=== PATIENT | female | born 1965 | race Caucasian/White ===

== ENCOUNTER 2016-03-17 13:51 | Day surgery (SDC) | payer MEDICARE ==
--- NOTE | ~2016-03-17 | OP ---
Record Of Operation [facility] [address] [place]. [address] NAME: TITI SERNA : 67 STATUS : [facility]#: [id number] AGE: 51 ADM/REG DATE : 03/17/16 MR#: [id number] REPORT SERV DATE: 03/17/16 DICTATED BY: Dinorah NGUYEN DATE: 03/17/16 REPORT STATUS : Draft TRANSCRIBED BY: MODL DATE: 03/17/16 DATE OF PROCEDURE: PREOPERATIVE DIAGNOSIS: History of right distal ureteral obstruction of uncertain etiology. POSTOPERATIVE DIAGNOSIS: Right distal ureteral obstruction consistent with stricture versus tumor, no evidence of stone. PROCEDURE: Cystoscopy, removal of right double-J stent, right retrograde pyelography, rigid ureteroscopy, double-J stent placement. SURGEON: Dinorah Nguyen M.D. ANESTHESIA: General endotracheal. COMPLICATIONS: None. DRAINS: 7-Latvian x 24 cm Percuflex plus double-J stent. BRIEF HISTORY: Ms. Serna is a 51-year-old white female known to me who presented with right hydronephrosis and urinary tract infection with sepsis. She had a stent placed on 03/08/2016, and there was a question of whether she had a stone or another etiology for her obstruction. She improved and was put on sensitivity-directed antibiotics and is here for further investigation. It should be noted she has widely metastatic breast cancer, currently undergoing chemotherapy. We discussed risks of bleeding, infection, anesthesia, inability to diagnose injury to adjacent organs, need for long-term stent etc. There were no unanswered questions. DESCRIPTION OF PROCEDURE: Under excellent general anesthesia, the patient was prepped and draped in standard lithotomy position. Cystoscopy was performed with a 30-degree lens, revealed a stent emanating from the right orifice. Flexible graspers were used to remove it without difficulty. I inserted an angled glidewire through a 5-Latvian open-ended ureteral catheter up to the level of the collecting system. Alongside the wire, a short rigid ureteroscope was inserted and encountered bullous edema and soft tissue mass in the area of known stricture that was difficult actually to negotiate proximal to this, but eventually, I was able to negotiate to an area of normal ureter above this area. I never saw a stone. This was not consistent with an impacted stone either with extrinsic compression or even intraureteral tumor formation. I did not see the medical benefit of a biopsy at this time and instead opted to simply replace her stent. The ureteroscope was removed. I retrofitted the wire in the cystoscope, placed a 7-Latvian x 24 cm Percuflex plus double-J stent which coiled nicely in the renal pelvis and bladder. I plan to discharge Ms. Serna as an outpatient with the following instructions. DISCHARGE INSTRUCTIONS: 1. Home today. 2. Pyridium 200 mg one p.o. t.i.d. p.r.n. bladder pain #15 with three refills. Record Of Operation [address] [place]. [address] NAME: TITI SERNA : 67 STATUS : [facility] PAT#: [id number] AGE: 51 ADM/REG DATE : 03/17/16 MR#: [id number] REPORT SERV DATE: 03/17/16 DICTATED BY: Dinorah NGUYEN DATE: 03/17/16 REPORT STATUS : Draft TRANSCRIBED BY: SANTIAGO DATE: 03/17/16 3. She has plenty of narcotics per her . 4. Follow up in my office in two months to assess her clinical status and consider stent exchange in two to three months. Certainly, her clinical situation will determine further intervention. KEO/SANTIAGO Dinorah Nguyen M.D. / [id number] CC: Oneida Tapia M.D. Bertrand Marquess Anz III, M.D.
[~2016-03-17 13:51] MED LIST: ACET500CAP PO; AMOXIL500C PO; CALCIUM PO; DEXEL PO; ENDOCET1 TA3 PO; FERROUS SULF325 M1 PO; IBRANCE PO; IBRANCE100 PO; IRON PO; K-PHO2 PO; L20 PO; LEVAQUIN750 MG PO; MULTIVIT/MIN PO; MULTIVITAMI1 PO; NEUR300 PO; NORCO1 TA1 PO; NORCO1 TAB PO; STERAPRED DS10 MG; SULFAMETHOXAZOLE PO; TYLENOL PM PO
[2016-03-24] MEDS ORDERED: IBRANCE100 PO (14:42)
[2016-03-24] MEDS ORDERED: CENTRUM PO (14:43)
[2016-03-24] MEDS ORDERED: FERROUS SULF325 M1 PO (14:43)
[2016-03-24] MEDS ORDERED: POTASSIUM OTC PO (14:44)
[2016-03-24] MEDS ORDERED: BACDS PO (14:44)
[2016-03-24] MEDS ORDERED: NORCO1 TAB PO (14:46)
[2016-03-24] MEDS ORDERED: NEUR100 PO (14:48)
[2016-04-03] MEDS ORDERED: [UNRECOGNIZED DRUG - REMARK] PO (13:36)
[2016-04-03] MEDS ORDERED: OXYCONTIN PO (13:43)
[2016-05-18] MEDS ORDERED: DEX4 PO (12:55)
[2016-05-18] MEDS ORDERED: OXYCON40 PO (12:56)
[2016-05-18] MEDS ORDERED: LYRICA75 PO (12:56)
[2016-05-18] MEDS ORDERED: XELODA PO (12:57)
[2016-05-18] MEDS ORDERED: NORCO1 TAB PO (12:57)
== END 2016-03-17 17:35 | disposition home or self-care (01) ==
LOC: SDC 13:51
PROC: 0T768DZ Dilation of Right Ureter with Intraluminal Device, Via Natural or Artificial Opening Endoscopic (ICD-10-PCS; 2016-03-17)
PROC: 0TC08ZZ Extirpation of Matter from Right Kidney, Via Natural or Artificial Opening Endoscopic (ICD-10-PCS; principal; 2016-03-17 15:15)
DX: N13.1 Hydronephrosis with ureteral stricture, not elsewhere classified (principal); Z87.820 Personal history of traumatic brain injury; Z90.13 Acquired absence of bilateral breasts and nipples; Z85.3 Personal history of malignant neoplasm of breast; C78.7 Secondary malignant neoplasm of liver and intrahepatic bile duct; C79.51 Secondary malignant neoplasm of bone; Z79.51 Long term (current) use of inhaled steroids; Z79.899 Other long term (current) drug therapy; Z91.048 Other nonmedicinal substance allergy status; Z88.8 Allergy status to other drugs, medicaments and biological substances
CPT/HCPCS: 74420; A9270-GY; C1758; C1769; C2617; J2250; J2405; J2710; J3010; Q9967

== ENCOUNTER 2016-04-26 09:32 | Inpatient (IN) | payer OTHER ==
--- NOTE | ~2016-04-26 | DS ---
Discharge Summary [facility] [address] [place]. [address] NAME: TITI SERNA : 67 STATUS : DIS IN PAT#: [id number] AGE: 51 ADM/REG DATE : 04/26/16 MR#: [id number] REPORT SERV DATE: 05/06/16 DICTATED BY: HAKAN ROYAL DATE: 05/06/16 REPORT STATUS : Draft TRANSCRIBED BY: SANTIAGO DATE: 05/06/16 ADMISSION DATE: 04/26/2016 DISCHARGE DATE: 05/06/2016 DISCHARGE DIAGNOSES: 1. Acute on chronic bilateral hip and thigh pain, intractable. 2. Chronic snoring. 3. Metastatic breast cancer. 4. Anxiety, chronic. 5. Pancytopenia, stable, improving. 6. Drowsiness, confusion, resolved. 7. Constipation, resolved. CONSULTATIONS: 1. Radiation, Dr. Crook, May 03, 2016. 2. Palliative care, Dr. Thornton, May 04, 2016. 3. Oncology, Dr. Lam. IMAGIN. MRI of the spine, May 03, 2016; impression, distorted bone marrow particularly at the C4, C5, C6 level, probably reflects underlying small focal of metastatic disease. The posterior column, however, intact. There was no evidence of any destructive lesions or spread. Cord is not compressed at the levels. 2. MRI of thoracic spine, May 03, 2016; impression widespread bone metastasis throughout the whole thoracic vertebral bodies, impending canal stenosis and compression of distal thoracic cord identified at the L1 level. 3. MRI of the lumbar spine, May 03, 2016; impression, extensive metastatic replacement of the bone marrow after a cyst has spread into the right and left neural foramina at L1 with posterior bowing of the wall. These features suggest impending compression of the distal thoracic cord. COURSE OF HOSPITAL STAY: Please refer to history and physical dictated on April 26, 2016 by nurse practitioner, Jazmín Abdullahi, for complete admission details, as well as consultation notes. This patient is a 51-year-old female, who presented as a direct admission due to intractable bilateral hip and thigh pain. She does present with a history of metastatic breast cancer, is under the care of Dr. Lam of [facility]. 1. Acute on chronic bilateral hip and thigh intractable pain. The patient has been admitted for intractable pain stating that her medication will not cover her pain at home. There were concerns at the beginning the patient was not having proper dosing of medications at home because of medication cost. shut off worker has been involved with patient during the patient's hospital stay. OxyContin was increased to three times a day. This seems to have helped alleviate the patient's pain and the trial of Duragesic patch was initiated, but the patient had increased confusion during that time. Duragesic had been removed and confusion did clear. The patient was evaluated also by Discharge Summary [address] [place] [address] NAME: TITI SERNA : 67 STATUS : DIS IN PAT#: [id number] AGE: 51 ADM/REG DATE : 04/26/16 MR#: [id number] REPORT SERV DATE: 05/06/16 DICTATED BY: HAKAN ROYAL DATE: 05/06/16 REPORT STATUS : Draft TRANSCRIBED BY: MODBenjamin DATE: 05/06/16 Dr. Disla as far as recommendation for pain medication and pain control. At this time, the patient's pain was better controlled and she will follow up with Dr. Lam. Imaging was obtained, which was noted above. Areas of concern for cord compressions were noted. The patient was evaluated Dr. Crook, please review his consultation note. The patient has been started on radiation treatment. She is tolerating well. At the time of radiation began, the patient was started on Decadron, which seems to have helped alleviate pain. She will continue this at home. Dr. Crook will taper patient off medication. 2. Metastatic breast cancer followed by Dr. Lam of [facility]. The patient will follow up with Dr. Lam within five to seven days post-discharge. At this time, she will continue medications as prescribed. 3. Anxiety. The patient has had chronic anxiety through the years. It was discussed with the patient. As far as medication options at this time, we will leave this up for Dr. Lam to discuss with the patient. 4. Pancytopenia: This is secondary to Xeloda. The patient did receive a unit of blood on April 28, 2016. Pre-transfusion hemoglobin 6.9, post-transfusion hemoglobin is 8.7. Upon discharge, WBC 6.8, hemoglobin 7.7, hematocrit 23.9, and platelet count of 109. Lab results were monitored throughout her stay and this has improved. 5. Drowsiness and confusion. The patient did have period of drowsiness and confusion with medications and felt this was due to Duragesic patch. The patient was unable to tolerate. Once the patch was removed, the patient did clear. 6. Constipation. The patient did have periods of constipation due to medications and this has resolved. The patient has had bowel movement. Abdomen is soft. 7. Weakness. Physical Therapy evaluation was completed. It was offered for the patient to go home with Home Health and Physical Therapy. The patient did decline. A walker has been ordered and provided for the patient at home. DISCHARGE PLANNING: The patient will be discharged home to follow up with Dr. Lam and continue radiation. Medications have been provided, Decadron and Lyrica. DISCHARGE MEDICATIONS: 1. Decadron 4 mg one p.o. every six hours. 2. MiraLAX powder, a pack daily. 3. Lyrica 75 mg one p.o. twice daily. 4. OxyContin 40 mg one p.o. every eight hours. 5. Hydrocodone 10/325 one p.o. every four hours p.r.n. for pain. This discharge took greater than 30 minutes. /SANTIAGO Hakan Royal NP / [id number] Discharge Summary [address] [address] NAME: TITI SERNA : 67 STATUS : DIS IN PAT#: [id number] AGE: 51 ADM/REG DATE : 04/26/16 MR#: [id number] REPORT SERV DATE: 05/06/16 DICTATED BY: HAKAN ROYAL DATE: 05/06/16 REPORT STATUS : Draft TRANSCRIBED BY: SANTIAGO DATE: 05/06/16 CC: Atul Adams MD
--- NOTE | ~2016-04-26 | CN ---
Consultation Report [facility] [address] [place]. [address] NAME: TITI SERNA : 67 STATUS : ADM IN PAT#: [id number] AGE: 51 ADM/REG DATE : 04/26/16 MR#: [id number] REPORT SERV DATE: 05/04/16 DICTATED BY: LEONCIO THORNTON DATE: 05/04/16 REPORT STATUS : Draft TRANSCRIBED BY: SANTIAGO DATE: 05/04/16 PALLIATIVE CARE CONSULTATION DATE OF CONSULTATION: 05/04/2016 ALLERGIES: NONE KNOWN. HISTORY OF PRESENT ILLNESS: We are asked to see this 51-year-old lady with metastatic breast cancer who is status post bilateral mastectomies. She was admitted on 04/26/2016 with increasing pain issues involving her back and leg and difficulty ambulating. She was found to have spinal metastases which are fairly substantial and impending cord compression. She is undergoing palliative radiation therapy. She had a recent admission here on 03/08/2016 with a right hydronephrosis and sepsis, but did not have as far as I can tell, positive blood cultures. Since that time, she was at home, attending to her dogs and her . 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 Subsequently, she underwent x-ray therapy and tamoxifen. She is ER/MN positive. She presented with bone metastases in May of 2013 and liver metastases in December of 2015. She has extensive pelvic and hip disease. The staff has had concerns regarding her coping skills, comprehension of her disease, and a somewhat labile affect which ranges from crying in pain to smiling and not being terribly concern by things. These mood swings are relatively rapid. PAST MEDICAL HISTORY: Includes a right middle cerebral artery old cerebral vascular accident on CAT scan which the patient denies. She has no recollection of this event. Her CT scan was reviewed. SOCIAL HISTORY: She dropped out of school in the 10th grade and subsequently got her GED. She has very strong work affect. She is nonsmoker and nondrinker and no drugs. She is for the second time. Her is very attentive and involved. She has one son with whom she is involved with and a second son who is somewhat estranged. She also has multiple siblings, most of whom do not appear to be close to her, although evidently a brother in [place] spoke to her on the phone for over an hour today. FAMILY HISTORY: Includes cancer, possibly breast cancer in the mother. REVIEW OF SYSTEMS: Includes weight loss from 198 down to 168. Her appetite is good. She enjoys doing her Consultation Report [facility] [address] [place]. [address] NAME: TITI SERNA : 67 STATUS : ADM IN PAT#: [id number] AGE: 51 ADM/REG DATE : 04/26/16 MR#: [id number] REPORT SERV DATE: 05/04/16 DICTATED BY: LEONCIO THORNTON DATE: 05/04/16 REPORT STATUS : Draft TRANSCRIBED BY: SANTIAGO DATE: 05/04/16 house work. She does all of her ADLs. She has been described in the past as a "poor historian." Her labile mentation has been mentioned. There was some question about her overall comprehension and cognitive capacity. SIGNIFICANT LABORATORY DATA: Includes an albumin of 2.4. Liver functions which are twice normal. The bilirubin of 0.9 and a TSH in March of 0.17. Her white count is 4800, H and H is 7.1 and 22, platelet count is 92,000, and her INR is 1.4. The patient does continue on outpatient chemotherapy. PHYSICAL EXAMINATION: GENERAL: Today shows an awake, alert, pleasant lady who tells me her current pain level is 7/10 and does not take pain medication unless her pain is 10, whose affect is a bit on the labile side. She is preoccupied with her dog and shows me pictures of him throughout the conversation. It appears that denial and diversion are her primary coping tools. Her BMI is 29.9. VITAL SIGNS: Her blood pressure 120/73, pulse 98 and regular, respirations are 16 and not labored. Her temperature is 98.1. Reviewing her records indicates that her pulse rate which was higher in the past is now lower. HEENT: Unremarkable. Her dentition is mostly absent. Her trachea is midline. No lymph nodes are in the neck. She has bilateral mastectomy changes. LUNGS: Clear to auscultation anteriorly and posteriorly. HEART: Shows a regular rate and rhythm without murmur, gallop, or extra heart sounds. ABDOMEN: Soft, nontender. I do not appreciate a liver mass. This is a little bit of voluntary guarding in the right upper quadrant. MUSCULOSKELETAL: She does complain of some back and right leg pain and to my cursory examination, she appears to have some decreased function in the large muscles of the right lower extremity. Despite multiple conversations as chronicled by other caregiver, she seems surprised when told that she had cancer in her spine. A detailed neurological examination was not conducted. The patient is unaware of how long she is going to be in the hospital and wishes to get home to her animals. IMPRESSION: We have a still working information clerk cashier with diffuse breast cancer. She is very attached to her pets more so than most people. She appears to have some mild cognitive issues, but I think most of this is coping in the form of denial or diversion. 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 She says she sometimes gets upset and briefly tearful, but she refuses to let herself continue to feel that way. She denies being depressed. At this point, I think that her current pain regimen is fairly adequate to her needs. She is probably not going to overuse her medications. I have encouraged her to continue to take pain medications prior Consultation Report [address] [place]. [address] NAME: TITI SERNA JORGE L : 67 STATUS : ADM IN PAT#: [id number] AGE: 51 ADM/REG DATE : 04/26/16 MR#: [id number] REPORT SERV DATE: 05/04/16 DICTATED BY: LEONCIO THORNTON DATE: 05/04/16 REPORT STATUS : Draft TRANSCRIBED BY: SANTIAGO DATE: 05/04/16 to her pain being out of control. The nurses are telling me that they are giving her pain medications pretty much around the clock. She might benefit from the addition of an SSRI for both her underlying depression as well as if she has pseudobulbar affect. We need to find out what the timeline for her discharge is going to be, so that she can plan accordingly and I would suggest repeating a full thyroid panel since her last TSH level was on the low side. Given her ongoing resting tachycardia, I think this is something to consider, although certainly her anemia could be contributing to that. I think her current pain regimen while somewhat fragmented is meeting her needs and I believe that it is not something which she is going to be terribly thrilled about changing dramatically. She does not want detailed prognostic information yet. When she was complaining that the cancer seems to have spread all over and I asked her if she wanted further information about what that might mean, she really said that she would just prefer to continue to live her life and tries very hard not to think about the fact that she has cancer. We will continue to follow with you, but I think at this point, the pain regimen will probably need to be coordinated with the family as I do not see this lady taking pain medication unless she is almost disabled. Thank you for asking me to see her. We will follow. RWG/SANTIAGO Leoncio Thornton M.D. / [id number] CC: Autl Adams MD
--- NOTE | ~2016-04-26 | CONSULT ---
Radiation Oncology Consult [address] [address] NAME: TITI SERNA : 67 STATUS : ADM IN PAT#: [id number] AGE: 51 ADM/REG DATE : 04/26/16 MR#: [id number] REPORT SERV DATE: 05/04/16 DICTATED BY: QI CROOK DATE: 05/03/16 REPORT STATUS : Draft TRANSCRIBED BY: SANTIAGO DATE: 05/03/16 RADIATION ONCOLOGY CONSULTATION CHIEF COMPLAINT: Spinal cord compression. HISTORY OF PRESENT ILLNESS: Ms. Serna is a pleasant 51-year-old female with metastatic breast cancer. She has recently started on capecitabine for metastatic progression and was recently seen by Dr. Brantley for possible palliative radiation therapy to the left hip. Ms. Serna was admitted on 04/26/2016 due to intractable pain and difficulty ambulating secondary to the pain. MRI of the lumbar spine completed 05/03/2016 shows expansile bowing of the posterior wall into the canal suggesting extraosseous spread of disease surrounding the exiting right L1 nerve root suggesting an impending compression to the distal thoracic cord/conus region. Ms. Serna is currently in significant pain and is confused about when her last pain medicine was given. She presents today to discuss palliative radiation therapy in the setting of impending cord compression. PAST MEDICAL HISTORY: Breast cancer, mastectomy in 2010; postmastectomy radiation therapy; chemotherapy as described above. FAMILY HISTORY: Mother is secondary to cancer of unknown type. Father's history is not known. HOME MEDICATIONS: List reviewed and included in the patient's chart. ALLERGIES: NOT KNOWN. SOCIAL HISTORY: The patient is . Remote smoking history. REVIEW OF SYSTEMS: A comprehensive review of systems discussed in detail with the patient. The patient is a poor historian. Pertinent positives and negatives are included above in the history of present illness. PHYSICAL EXAMINATION: GENERAL: The patient is awake, alert, confused, some distress from pain. VITAL SIGNS: Afebrile. Vital signs stable. HEENT: Extraocular movements are intact. Sclerae anicteric. Oral cavity is benign without erythema. NECK: Supple. No thyromegaly. LYMPHATICS: No cervical, supraclavicular, or axillary lymphadenopathy palpated. LUNGS: Clear to auscultation bilaterally. Appropriate work of breathing. HEART: Regular rate. Normal sinus rhythm. No murmurs, rubs, or gallops. ABDOMEN: Soft, nontender, nondistended. No hepatosplenomegaly. No apparent hernias. EXTREMITIES: No cyanosis, clubbing, or edema. SKIN: No rashes. No obvious jaundice. Radiation Oncology Consult [place] [address] [place]. [address] NAME: TITI SERNA : 67 STATUS : ADM IN PAT#: [id number] AGE: 51 ADM/REG DATE : 04/26/16 MR#: [id number] REPORT SERV DATE: 05/04/16 DICTATED BY: QI CROOK DATE: 05/03/16 REPORT STATUS : Draft TRANSCRIBED BY: SANTIAGO DATE: 05/03/16 LABS AND OTHER DATA: As described above. ASSESSMENT/PLAN: A 51-year-old female with metastatic breast cancer, now with a new bone lesion at L1 causing an impending compression of the conus. I have recommended 30 Gy in 10 fractions as palliative emergent treatment. CT simulation will be performed today and her first treatment will be delivered this afternoon. I will confirm this. Ms. Serna has been started on steroids. If she has not, we may delay her first treatment by 24 hours. INFORMED CONSENT: The risks, benefits, and alternatives of this treatment have been discussed in detail with Ms. Serna and she wishes to proceed. I appreciate the opportunity to be involved in her care. ARVIN/SANTIAGO Qi Crook M.D. / [id number] CC: MD Alban Sevilla M.D. Bertrand Marquess Anz III, M.D. Marcus Wagner, MD James Santoro, MD
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
--- NOTE | ~2016-04-26 | IDS ---
Interim Discharge Summary [facility] [address] [place]. [address] NAME: TITI SERNA : 67 STATUS : ADM Gus PAT#: [id number] AGE: 51 ADM/REG DATE : 04/26/16 MR#: [id number] REPORT SERV DATE: 05/01/16 DICTATED BY: DATE: REPORT STATUS : Draft TRANSCRIBED BY: MODL DATE: 05/01/16 ADMISSION DATE: 04/26/2016 DISCHARGE DATE: DISCHARGE DATE: Within next 48 to 72 hours. Interim summary covers dates of service between 04/26/2016 and 05/01/2016. INTERIM DIAGNOSES: 1. Acute on chronic bilateral hip and thigh pain, intractable. 2. Chronic anxiety. 3. Constipation. 4. Drowsiness/confusion. 5. Metastatic breast cancer. 6. Pancytopenia. CONSULTATION: Dr. Lam, [facility]. PERTINENT TESTS AND PROCEDURES: None. HOSPITAL COURSE: Chief complaint upon admission: Intractable bilateral hip and anterior thigh pain in the setting of metastatic breast cancer. Please refer to history and physical dated 04/26/2016 provided by [facility] for further details pertaining to the patient's initial presentation upon admission and health history. Briefly, the patient is a 51-year-old female, who is under the outpatient care of Dr. Lam at [facility] [place] for treatment of metastatic breast cancer. The patient presented to the emergency department with complaints of intractable bilateral hip and anterior thigh pain, uncontrolled, on current home pain medication regimen. It is noteworthy to mention that the patient had similar admission for uncontrolled pain occurring between the dates of 04/03/2016 and 04/06/2016. 1. Acute on chronic bilateral hip/thigh pain, intractable. Concern has been stated over proper dosing of pain medications at home secondary to concern for medication cost. Social Work did verify that the patient's medication should be provided at an affordable cost under current health care plan. However, the patient continued home pain medication regimen during this admission in addition to fentanyl patch and IV Dilaudid for severe breakthrough pain. Despite these interventions, do also include ketorolac 15 mg IV every eight hours as needed, the patient's pain has continued to remain intractable. The patient has a significant history of multifocal disease throughout the bilateral pelvis and is status post radiation therapy to treat left pelvis. Multiple medication adjustments have been attempted to include addition of Flexeril which had to be discontinued secondary to no relief, addition of Neurontin which had to be discontinued secondary to hallucinations, confusion, and sedation and Interim Discharge Summary [address] [place]. [address] NAME: TITI SERNA : 67 STATUS : ADM Gus PAT#: [id number] AGE: 51 ADM/REG DATE : 04/26/16 MR#: [id number] REPORT SERV DATE: 05/01/16 DICTATED BY: DATE: REPORT STATUS : Draft TRANSCRIBED BY: MODL DATE: 05/01/16 Ativan which had to be significantly reduced secondary to confusion and sedation. The patient is now receiving home doses of OxyContin and [place] in addition to a fentanyl patch. Pain is still not reasonably controlled. CT myelogram of the lumbar spine is pending to rule out root impingement of the lumbar spine. If CT indicates possible nerve impingement, the patient may be candidate for epidural. 2. Chronic anxiety. The patient is receiving Ativan 0.25 mg p.o. every 12 hours as needed. The patient cannot tolerate an increase in this dose due to increased confusion, hallucination, and sedation. 3. Constipation. This is likely opioid induced. Senokot x1 dose was given last night and MiraLAX as scheduled. 4. Drowsiness/confusion. This is secondary to pain medications. The patient is very sensitive to changes in medications. Current plan is effective for fairly reasonable pain control without sedation. Continue current regimen and monitor closely for signs and symptoms of sedation. Lyrica was started on 04/30/2016 after discontinuing Neurontin. The patient is tolerating this medication with no adverse side effects today. 5. Metastatic breast cancer. This is per Dr. Lam at [facility]. The patient is currently on Xeloda. 6. Pancytopenia. This is secondary to Xeloda. LABORATORY DATA: For today, reported white blood cell count at 3.4, hemoglobin 8.3, hematocrit 25.5, and platelets 86. The patient has required one unit of packed red blood cells during this admission, and since that time, hemoglobin has remained stable. CURRENT PLAN AND DISPOSITION RECOMMENDATIONS: 1. Home and CT myelogram of L-spine, results and pain is reasonably controlled. The patient may be a candidate for additional interventions if CT is positive for nerve impingement. 2. Social Work was contacted for discharge planning to include home health care for medication management. The patient declined home health care. ANTIONETTE/SANTIAGO ANNETTE Vuong / [id number] CC: Javier Boone M.D.
[~2016-04-26 09:32] MED LIST changes: +BACDS PO; +CENTRUM PO; +NEUR100 PO; +OXYCONTIN PO; +POTASSIUM OTC PO; +[UNRECOGNIZED DRUG - REMARK] PO
[2016-04-26 13:09] LABS: HEMATOCRIT 23.3 % (36.0-48.0); HEMOGLOBIN 7.4 g/dL (12.0-16.0); MANUAL DIFF YES %; MEAN CORPUS HGB CONC 31.8 g/dL (32.0-36.0); MEAN CORPUSCULAR HEMOGLOB 30.3 pg (26.0-34.0); MEAN CORPUSCULAR VOLUME 95.5 fL (80-100); MEAN PLATELET VOLUME 10.6 fL (9.2-13.0); NUCLEATED RED BLOOD CELLS 4.7 /100WBC (0-0); PLATELET COUNT 119 10/3/uL (150-400); RBC DISTRIBUTION WIDTH 20.6 % (12.0-16.0); RED CELL COUNT 2.44 10/6/uL (4.0-5.6); WHITE BLOOD CELLS 3.4 10/3/uL (4.5-10.5)
[2016-04-26 13:29] LABS: A/G RATIO 0.6 (0.7-1.9); ALBUMIN 2.4 G/DL (3.5-5.0); CALCIUM, SERUM 8.3 MG/DL (8.5-10.4); CHLORIDE, SERUM 102 MMOL/L (96-112); CO2 (CARBON DIOXIDE) 22 MMOL/L (24-34); CREATININE 0.71 MG/DL (0.55-1.02); GFR AFRICAN AMERICAN 115 ML/MIN (>=60); GFR NON AFRICAN AMERICAN 99 ML/MIN (>=60); GLOBULIN 3.9 G/DL (2.5-4.1); GLUCOSE, SERUM 90 MG/DL (60-99); SGOT(AST) 105 U/L (5-40); SGPT(ALT) 69 U/L (5-65); SODIUM, SERUM 137 MMOL/L (135-148); TOTAL BILIRUBIN 0.9 MG/DL (0-1.2); TOTAL PROTEIN 6.3 G/DL (6.0-8.5)
[2016-04-26 13:31] LABS: ALKALINE PHOSPHATASE 186 U/L (45-117); BAND NEUTROPHILS 8 %; BUN (BLOOD UREA NITROGEN) 11 MG/DL (6-23); EOSINOPHILS 2 %; EOSINOPHILS ABSOLUTE (CALC) 0.07 10/3/uL (0.0-0.53); IMMATURE GRANS ABSOLUTE (CALC) 0.27 10/3/uL (0.0-0.11); LYMPHOCYTES 26 %; LYMPHOCYTES ABSOLUTE (CALC) 0.88 10/3/uL (0.67-4.30); METAMYELOCYTES 6 %; MONOCYTES 14 %; MONOCYTES ABSOLUTE (CALC) 0.48 10/3/uL (0.21-1.20); MYELOCYTES 2 %; PHOSPHORUS, SERUM 3.3 MG/DL (2.5-4.5); SEGMENTED NEUTROPHIL (0) 42 %; TOTAL NUCLEATED CELLS 100
[2016-04-26 13:32] LABS: ANISOCYTOSIS 1+ (5-10/OIF) (0-5/OIF); MACROCYTES 1+ (5-10/OIF) (0-5/OIF); PLATELET ESTIMATE SLT DEC (ADEQUATE); POIKILOCYTOSIS 1+ (5-10/OIF) (0-5/OIF); POLYCHROMASIA 1+ (2-5/OIF) (0-1/OIF); TEARDROP SHAPED RBCS OCC (0-2/OIF)
[2016-04-26] MEDS ORDERED: OXYCON40 PO (15:26)
[2016-04-26] MEDS ORDERED: NORCO1 TAB PO (15:26)
[2016-04-27 05:07] LABS: HEMATOCRIT 23.1 % (36.0-48.0); HEMOGLOBIN 7.2 g/dL (12.0-16.0); MEAN CORPUS HGB CONC 31.2 g/dL (32.0-36.0); MEAN CORPUSCULAR HEMOGLOB 30.5 pg (26.0-34.0); MEAN CORPUSCULAR VOLUME 97.9 fL (80-100); NUCLEATED RED BLOOD CELLS 3.1 /100WBC (0-0); PLATELET COUNT 111 10/3/uL (150-400); RBC DISTRIBUTION WIDTH 21.1 % (12.0-16.0); RED CELL COUNT 2.36 10/6/uL (4.0-5.6); WHITE BLOOD CELLS 3.6 10/3/uL (4.5-10.5)
[2016-04-27 05:11] LABS: MANUAL DIFF YES %
[2016-04-27 05:56] LABS: BUN (BLOOD UREA NITROGEN) 11 MG/DL (6-23); CALCIUM, SERUM 8.3 MG/DL (8.5-10.4); CHLORIDE, SERUM 103 MMOL/L (96-112); CO2 (CARBON DIOXIDE) 23 MMOL/L (24-34); CREATININE 0.71 MG/DL (0.55-1.02); GFR AFRICAN AMERICAN 115 ML/MIN (>=60); GFR NON AFRICAN AMERICAN 99 ML/MIN (>=60); GLUCOSE, SERUM 101 MG/DL (60-99); POTASSIUM, SERUM 4.3 MMOL/L (3.5-5.3); SODIUM, SERUM 139 MMOL/L (135-148)
[2016-04-27 06:08] LABS: ANISOCYTOSIS 1+ (5-10/OIF) (0-5/OIF); BAND NEUTROPHILS 6 %; EOSINOPHILS 2 %; EOSINOPHILS ABSOLUTE (CALC) 0.07 10/3/uL (0.0-0.53); IMMATURE GRANS ABSOLUTE (CALC) 0.07 10/3/uL (0.0-0.11); LYMPHOCYTES 20 %; LYMPHOCYTES ABSOLUTE (CALC) 0.54 10/3/uL (0.67-4.30); METAMYELOCYTES 2 %; MONOCYTES 30 %; MONOCYTES ABSOLUTE (CALC) 1.26 10/3/uL (0.21-1.20); NEUTROPHILS ABSOLUTE (CALC) 1.66 10/3/uL (2.02-8.40); PLATELET ESTIMATE SLT DEC (ADEQUATE); SEGMENTED NEUTROPHIL (0) 40 %; TEARDROP SHAPED RBCS FEW (3-10/OIF); TOTAL NUCLEATED CELLS 100
[2016-04-28 18:04] LABS: HEMATOCRIT 22.3 % (36.0-48.0); MEAN CORPUS HGB CONC 30.9 g/dL (32.0-36.0); MEAN CORPUSCULAR HEMOGLOB 30.7 pg (26.0-34.0); MEAN CORPUSCULAR VOLUME 99.1 fL (80-100); MEAN PLATELET VOLUME 9.3 fL (9.2-13.0); NUCLEATED RED BLOOD CELLS 4.4 /100WBC (0-0); PLATELET COUNT 115 10/3/uL (150-400); RBC DISTRIBUTION WIDTH 21.3 % (12.0-16.0); RED CELL COUNT 2.25 10/6/uL (4.0-5.6); WHITE BLOOD CELLS 3.7 10/3/uL (4.5-10.5)
[2016-04-28 18:06] LABS: HEMOGLOBIN 6.9 g/dL (12.0-16.0)
[2016-04-28 18:07] LABS: MANUAL DIFF YES %
[2016-04-28 18:31] LABS: BAND NEUTROPHILS 14 %; IMMATURE GRANS ABSOLUTE (CALC) 0.44 10/3/uL (0.0-0.11); LYMPHOCYTES 24 %; LYMPHOCYTES ABSOLUTE (CALC) 0.89 10/3/uL (0.67-4.30); METAMYELOCYTES 9 %; MONOCYTES 8 %; MYELOCYTES 3 %; NEUTROPHILS ABSOLUTE (CALC) 2.07 10/3/uL (2.02-8.40); PLATELET ESTIMATE SLT DEC (ADEQUATE); SEGMENTED NEUTROPHIL (0) 42 %; TEARDROP SHAPED RBCS OCC (0-2/OIF); TOTAL NUCLEATED CELLS 100
[2016-04-30 06:24] LABS: MEAN CORPUS HGB CONC 32.1 g/dL (32.0-36.0); MEAN CORPUSCULAR HEMOGLOB 31.8 pg (26.0-34.0); MEAN CORPUSCULAR VOLUME 98.9 fL (80-100); MEAN PLATELET VOLUME 9.3 fL (9.2-13.0); PLATELET COUNT 93 10/3/uL (150-400); RBC DISTRIBUTION WIDTH 20.1 % (12.0-16.0); WHITE BLOOD CELLS 3.6 10/3/uL (4.5-10.5)
[2016-04-30 06:27] LABS: HEMATOCRIT 27.1 % (36.0-48.0); HEMOGLOBIN 8.7 g/dL (12.0-16.0); RED CELL COUNT 2.74 10/6/uL (4.0-5.6)
[2016-04-30 06:29] LABS: MANUAL DIFF YES %
[2016-04-30 06:35] LABS: BUN (BLOOD UREA NITROGEN) 15 MG/DL (6-23); CALCIUM, SERUM 9.1 MG/DL (8.5-10.4); CHLORIDE, SERUM 105 MMOL/L (96-112); CO2 (CARBON DIOXIDE) 28 MMOL/L (24-34); CREATININE 0.73 MG/DL (0.55-1.02); GFR AFRICAN AMERICAN 111 ML/MIN (>=60); GFR NON AFRICAN AMERICAN 96 ML/MIN (>=60); GLUCOSE, SERUM 99 MG/DL (60-99); POTASSIUM, SERUM 4.4 MMOL/L (3.5-5.3); SODIUM, SERUM 142 MMOL/L (135-148)
[2016-04-30 06:50] LABS: BAND NEUTROPHILS 7 %; EOSINOPHILS 7 %; EOSINOPHILS ABSOLUTE (CALC) 0.25 10/3/uL (0.0-0.53); IMMATURE GRANS ABSOLUTE (CALC) 0.11 10/3/uL (0.0-0.11); LYMPHOCYTES 16 %; LYMPHOCYTES ABSOLUTE (CALC) 0.58 10/3/uL (0.67-4.30); METAMYELOCYTES 3 %; MONOCYTES 17 %; MONOCYTES ABSOLUTE (CALC) 0.61 10/3/uL (0.21-1.20); NEUTROPHILS ABSOLUTE (CALC) 2.05 10/3/uL (2.02-8.40); SEGMENTED NEUTROPHIL (0) 50 %; TOTAL NUCLEATED CELLS 100
[2016-04-30 06:51] LABS: ANISOCYTOSIS 1+ (5-10/OIF) (0-5/OIF); PLATELET ESTIMATE DEC (ADEQUATE)
[2016-05-01 05:25] LABS: HEMATOCRIT 25.5 % (36.0-48.0); HEMOGLOBIN 8.3 g/dL (12.0-16.0); MEAN CORPUS HGB CONC 32.5 g/dL (32.0-36.0); MEAN CORPUSCULAR HEMOGLOB 31.9 pg (26.0-34.0); MEAN CORPUSCULAR VOLUME 98.1 fL (80-100); MEAN PLATELET VOLUME 10.1 fL (9.2-13.0); NUCLEATED RED BLOOD CELLS 4.7 /100WBC (0-0); PLATELET COUNT 86 10/3/uL (150-400); RBC DISTRIBUTION WIDTH 19.3 % (12.0-16.0); WHITE BLOOD CELLS 3.4 10/3/uL (4.5-10.5)
[2016-05-01 05:29] LABS: MANUAL DIFF YES %
[2016-05-01 05:43] LABS: BUN (BLOOD UREA NITROGEN) 21 MG/DL (6-23); CALCIUM, SERUM 8.7 MG/DL (8.5-10.4); CHLORIDE, SERUM 99 MMOL/L (96-112); CO2 (CARBON DIOXIDE) 27 MMOL/L (24-34); CREATININE 0.87 MG/DL (0.55-1.02); GFR AFRICAN AMERICAN 90 ML/MIN (>=60); GFR NON AFRICAN AMERICAN 78 ML/MIN (>=60); GLUCOSE, SERUM 101 MG/DL (60-99); SODIUM, SERUM 136 MMOL/L (135-148)
[2016-05-01 07:46] LABS: BAND NEUTROPHILS 11 %; EOSINOPHILS 3 %; IMMATURE GRANS ABSOLUTE (CALC) 0.24 10/3/uL (0.0-0.11); LYMPHOCYTES 20 %; LYMPHOCYTES ABSOLUTE (CALC) 0.68 10/3/uL (0.67-4.30); METAMYELOCYTES 4 %; MONOCYTES 20 %; MONOCYTES ABSOLUTE (CALC) 0.68 10/3/uL (0.21-1.20); MYELOCYTES 3 %; PLATELET ESTIMATE DEC (ADEQUATE); REACTIVE LYMPHS FEW (3-5%) (0-5%); SEGMENTED NEUTROPHIL (0) 39 %; TOTAL NUCLEATED CELLS 100
[2016-05-02 04:37] LABS: HEMATOCRIT 23.9 % (36.0-48.0); HEMOGLOBIN 7.9 g/dL (12.0-16.0); MEAN CORPUS HGB CONC 33.1 g/dL (32.0-36.0); MEAN CORPUSCULAR HEMOGLOB 32.1 pg (26.0-34.0); MEAN CORPUSCULAR VOLUME 97.2 fL (80-100); MEAN PLATELET VOLUME 10.8 fL (9.2-13.0); NUCLEATED RED BLOOD CELLS 4.8 /100WBC (0-0); PLATELET COUNT 108 10/3/uL (150-400); RBC DISTRIBUTION WIDTH 18.9 % (12.0-16.0); RED CELL COUNT 2.46 10/6/uL (4.0-5.6)
[2016-05-02 04:39] LABS: MANUAL DIFF YES %
[2016-05-02 04:53] LABS: CALCIUM, SERUM 8.3 MG/DL (8.5-10.4); CHLORIDE, SERUM 97 MMOL/L (96-112); CO2 (CARBON DIOXIDE) 27 MMOL/L (24-34); CREATININE 0.94 MG/DL (0.55-1.02); GFR AFRICAN AMERICAN 82 ML/MIN (>=60); GFR NON AFRICAN AMERICAN 71 ML/MIN (>=60); GLUCOSE, SERUM 101 MG/DL (60-99); POTASSIUM, SERUM 5.1 MMOL/L (3.5-5.3); SODIUM, SERUM 133 MMOL/L (135-148)
[2016-05-02 04:59] LABS: BUN (BLOOD UREA NITROGEN) 26 MG/DL (6-23)
[2016-05-02 05:04] LABS: ANISOCYTOSIS 1+ (5-10/OIF) (0-5/OIF); BAND NEUTROPHILS 15 %; BASOPHILS 1 %; BASOPHILS ABSOLUTE (CALC) 0.03 10/3/uL (0.0-0.16); IMMATURE GRANS ABSOLUTE (CALC) 0.18 10/3/uL (0.0-0.11); LYMPHOCYTES 35 %; LYMPHOCYTES ABSOLUTE (CALC) 1.05 10/3/uL (0.67-4.30); METAMYELOCYTES 4 %; MONOCYTES 20 %; MYELOCYTES 2 %; NEUTROPHILS ABSOLUTE (CALC) 1.14 10/3/uL (2.02-8.40); PLATELET ESTIMATE DEC (ADEQUATE); SEGMENTED NEUTROPHIL (0) 23 %; TOTAL NUCLEATED CELLS 100
[2016-05-02 05:05] LABS: POLYCHROMASIA 1+ (2-5/OIF) (0-1/OIF); SPHEROCYTES FEW (3-10/OIF)
[2016-05-03 04:02] LABS: HEMATOCRIT 21.9 % (36.0-48.0); HEMOGLOBIN 7.1 g/dL (12.0-16.0); MEAN CORPUS HGB CONC 32.4 g/dL (32.0-36.0); MEAN CORPUSCULAR HEMOGLOB 31.7 pg (26.0-34.0); MEAN CORPUSCULAR VOLUME 97.8 fL (80-100); PLATELET COUNT 86 10/3/uL (150-400); RBC DISTRIBUTION WIDTH 19.2 % (12.0-16.0); RED CELL COUNT 2.24 10/6/uL (4.0-5.6); WHITE BLOOD CELLS 3.3 10/3/uL (4.5-10.5)
[2016-05-03 04:05] LABS: CALCIUM, SERUM 7.9 MG/DL (8.5-10.4); CHLORIDE, SERUM 100 MMOL/L (96-112); CO2 (CARBON DIOXIDE) 29 MMOL/L (24-34); CREATININE 0.66 MG/DL (0.55-1.02); GFR AFRICAN AMERICAN 119 ML/MIN (>=60); GFR NON AFRICAN AMERICAN 103 ML/MIN (>=60); GLUCOSE, SERUM 116 MG/DL (60-99); POTASSIUM, SERUM 4.5 MMOL/L (3.5-5.3); SODIUM, SERUM 138 MMOL/L (135-148)
[2016-05-03 04:06] LABS: MANUAL DIFF YES %
[2016-05-03 04:08] LABS: BUN (BLOOD UREA NITROGEN) 20 MG/DL (6-23)
[2016-05-03 04:37] LABS: ANISOCYTOSIS 1+ (5-10/OIF) (0-5/OIF); BAND NEUTROPHILS 17 %; BASOPHILS 1 %; BASOPHILS ABSOLUTE (CALC) 0.03 10/3/uL (0.0-0.16); EOSINOPHILS 3 %; IMMATURE GRANS ABSOLUTE (CALC) 0.33 10/3/uL (0.0-0.11); LYMPHOCYTES 41 %; LYMPHOCYTES ABSOLUTE (CALC) 1.35 10/3/uL (0.67-4.30); METAMYELOCYTES 8 %; MONOCYTES 5 %; MONOCYTES ABSOLUTE (CALC) 0.17 10/3/uL (0.21-1.20); MYELOCYTES 2 %; NEUTROPHILS ABSOLUTE (CALC) 1.32 10/3/uL (2.02-8.40); PLATELET ESTIMATE DEC (ADEQUATE); SEGMENTED NEUTROPHIL (0) 23 %; TOTAL NUCLEATED CELLS 100
[2016-05-03 04:38] LABS: POLYCHROMASIA 1+ (2-5/OIF) (0-1/OIF)
[2016-05-04 06:45] LABS: HEMATOCRIT 22.1 % (36.0-48.0); HEMOGLOBIN 7.1 g/dL (12.0-16.0); MEAN CORPUS HGB CONC 32.1 g/dL (32.0-36.0); MEAN CORPUSCULAR HEMOGLOB 31.3 pg (26.0-34.0); MEAN CORPUSCULAR VOLUME 97.4 fL (80-100); MEAN PLATELET VOLUME 10.2 fL (9.2-13.0); NUCLEATED RED BLOOD CELLS 4.9 /100WBC (0-0); PLATELET COUNT 92 10/3/uL (150-400); RBC DISTRIBUTION WIDTH 19.4 % (12.0-16.0); RED CELL COUNT 2.27 10/6/uL (4.0-5.6)
[2016-05-04 06:46] LABS: MANUAL DIFF YES %; WHITE BLOOD CELLS 4.8 10/3/uL (4.5-10.5)
[2016-05-04 07:54] LABS: ANISOCYTOSIS 1+ (5-10/OIF) (0-5/OIF); BAND NEUTROPHILS 11 %; EOSINOPHILS 2 %; GIANT PLATELET OCC; LYMPHOCYTES 22 %; LYMPHOCYTES ABSOLUTE (CALC) 1.06 10/3/uL (0.67-4.30); METAMYELOCYTES 2 %; MONOCYTES 20 %; MONOCYTES ABSOLUTE (CALC) 0.96 10/3/uL (0.21-1.20); NEUTROPHILS ABSOLUTE (CALC) 2.59 10/3/uL (2.02-8.40); PLATELET ESTIMATE DEC (ADEQUATE); POLYCHROMASIA 1+ (2-5/OIF) (0-1/OIF); SEGMENTED NEUTROPHIL (0) 43 %; TOTAL NUCLEATED CELLS 100
[2016-05-05 06:09] LABS: HEMATOCRIT 23.9 % (36.0-48.0); HEMOGLOBIN 7.7 g/dL (12.0-16.0); MEAN CORPUS HGB CONC 32.2 g/dL (32.0-36.0); MEAN CORPUSCULAR HEMOGLOB 31.8 pg (26.0-34.0); MEAN CORPUSCULAR VOLUME 98.8 fL (80-100); MEAN PLATELET VOLUME 10.3 fL (9.2-13.0); NUCLEATED RED BLOOD CELLS 6.5 /100WBC (0-0); PLATELET COUNT 109 10/3/uL (150-400); RBC DISTRIBUTION WIDTH 19.2 % (12.0-16.0); RED CELL COUNT 2.42 10/6/uL (4.0-5.6)
[2016-05-05 06:12] LABS: MANUAL DIFF YES %; WHITE BLOOD CELLS 6.8 10/3/uL (4.5-10.5)
[2016-05-05 06:45] LABS: BAND NEUTROPHILS 22 %; IMMATURE GRANS ABSOLUTE (CALC) 1.09 10/3/uL (0.0-0.11); LYMPHOCYTES 20 %; LYMPHOCYTES ABSOLUTE (CALC) 1.36 10/3/uL (0.67-4.30); METAMYELOCYTES 13 %; MONOCYTES 8 %; MONOCYTES ABSOLUTE (CALC) 0.54 10/3/uL (0.21-1.20); MYELOCYTES 3 %; NEUTROPHILS ABSOLUTE (CALC) 3.81 10/3/uL (2.02-8.40); SEGMENTED NEUTROPHIL (0) 34 %; TOTAL NUCLEATED CELLS 100
[2016-05-05 06:46] LABS: ANISOCYTOSIS 1+ (5-10/OIF) (0-5/OIF); PLATELET ESTIMATE DEC (ADEQUATE); POIKILOCYTOSIS 1+ (5-10/OIF) (0-5/OIF)
[2016-05-06] MEDS ORDERED: MIRALAX POWDER1 PKT PO (09:51)
[2016-05-06] MEDS ORDERED: DEX4 PO (09:51)
[2016-05-06] MEDS ORDERED: LYRICA75 PO (09:52)
[2016-05-06] MEDS ORDERED: OXYCON40 PO (09:53)
[2016-05-06] MEDS ORDERED: ATV.5 PO (10:00)
[2016-05-18] MEDS ORDERED: DEX4 PO (12:55)
[2016-05-18] MEDS ORDERED: LYRICA75 PO (12:56)
[2016-05-18] MEDS ORDERED: OXYCON40 PO (12:56)
[2016-05-18] MEDS ORDERED: XELODA PO (12:57)
[2016-05-18] MEDS ORDERED: NORCO1 TAB PO (12:57)
== END 2016-05-06 10:42 | disposition home or self-care (01) | DRG 542 ==
LOC: 4EA 09:32
PROVIDERS: Internal Medicine; Nurse Practitioner Adult Health; Nurse Practitioner Family
PROC: 30233N1 Transfusion of Nonautologous Red Blood Cells into Peripheral Vein, Percutaneous Approach (ICD-10-PCS; principal; 2016-04-29)
DX: C79.51 Secondary malignant neoplasm of bone (principal); D61.810 Antineoplastic chemotherapy induced pancytopenia; C50.919 Malignant neoplasm of unspecified site of unspecified female breast; E83.52 Hypercalcemia; G95.29 Other cord compression; F41.9 Anxiety disorder, unspecified; E86.0 Dehydration; Z51.5 Encounter for palliative care; Z17.0 Estrogen receptor positive status [ER+]
CPT/HCPCS: 36415; 72141-52; 72146-52; 72148-52; 77280; 77290; 77307; 77334; 77336; 77412; 80048; 80053; 83735; 84100; 85025; 86850; 86900; 86901; 86920; 97161-GP; A9270-GY; A9577; J1170; J1885; J2250; J2405; J3010; P9016

== ENCOUNTER 2016-05-18 13:05 | Inpatient (IN) | payer OTHER ==
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
--- NOTE | ~2016-05-18 | DS ---
Discharge Summary [facility] [address] [place]. [address] NAME: TITI SERNA : 67 STATUS : DIS IN PAT#: [id number] AGE: 51 ADM/REG DATE : 05/18/16 MR#: [id number] REPORT SERV DATE: 05/20/16 DICTATED BY: HAKAN ROYAL DATE: 05/20/16 REPORT STATUS : Draft TRANSCRIBED BY: MODL DATE: 05/20/16 ADMISSION DATE: 05/18/2016 DISCHARGE DATE: 05/20/2016 DISCHARGE DIAGNOSES: 1. Hypokalemia, resolved. 2. Diarrhea, nausea, vomiting, resolved. 3. Metastatic breast cancer, followed by Dr. Lam. 4. Thrombocytopenia, chemo-induced, platelets 18, stable. 5. Generalized weakness. 6. Anemia of chronic disease, hemoglobin 8.1, hematocrit 23.3, stable. IMAGING: Chest x-ray, 05/18/2016. Impression: Negative AP portable chest. LABORATORY DATA: WBC is 4.2, hemoglobin 8.1, hematocrit 23.3, platelet count 18. Sodium 134, potassium 4.7, chloride is 100, BUN is 19, creatinine is 0.57, glucose is 171. Calcium is 7.4 and magnesium is 2.6. COURSE OF HOSPITAL STAY: Please refer to history and physical dictated on 05/18/2016 for complete admission details. This patient is a 51-year-old female, who presented to the [facility] Room with complaints of nausea, vomiting, and diarrhea; onset approximately less than 24 hours prior to admission. The patient does present with a history of metastatic breast cancer, is under the care of Dr. Lam of [facility], has currently completed radiation but is on Xeloda. The patient reported upon admission that she had had increased generalized weakness for approximately 48 hours. Onset of diarrhea, vomiting, and nausea began approximately morning of admission. 1. Hypokalemia. As noted when the patient was admitted, potassium was 2.5. This was replaced per protocol and monitored during her stay. At this time, potassium is 4.7, which has returned to normal. The patient will have followup labs with Dr. Lam in outpatient setting. 2. Diarrhea, nausea, and vomiting. The patient was provided antiemetics during her stay, IV fluids, initially on clear liquids and advanced to regular diet. The symptoms were chemo induced. The patient states having nausea medications at home. Denies diarrhea and abdominal cramping. 3. Metastatic breast cancer, followed by Dr. Lam, currently completed radiation, was on Xeloda prior to admission. Per Dr. Lam, the patient will hold Xeloda, will follow up outpatient for lab work and re-evaluation. 4. Thrombocytopenia as noted upon admission. Platelet count was 21. Hemoglobin is coming up. Platelet count at this time is 18, has remained stable. Again, the patient will follow up outpatient for monitoring. 5. Generalized weakness. The patient has complaints of generalized weakness but has been able to ambulate without difficulty in the room, has declined home health, in physical therapy at this time. 6. Anemia of chronic disease. Hemoglobin upon admission was 7.1. The patient did receive Discharge Summary [address] [address] NAME: TITI SERNA : 67 STATUS : DIS IN [facility]#: [id number] AGE: 51 ADM/REG DATE : 05/18/16 MR#: [id number] REPORT SERV DATE: 05/20/16 DICTATED BY: HAKAN ROYAL DATE: 05/20/16 REPORT STATUS : Draft TRANSCRIBED BY: MODBenjamin DATE: 05/20/16 one unit of blood on 05/18/2016. At this time, hemoglobin is 8.1, hematocrit 23.3, she is stable. DISCHARGE NEEDS: The patient has again declined home health care and physical therapy. The patient is being discharged home in hemodynamically stable condition, to follow up with Dr. Lam, outpatient. DISCHARGE MEDICATIONS: 1. Decadron mg one p.o. every 6 hours. 2. Lyrica 75 mg one p.o. twice daily. 3. OxyContin 40 mg one p.o. twice a twice daily. 4. Hydrocodone 10/325 one p.o. every four hours p.r.n. for pain. This discharge took less than 30 minutes. /SANTIAGO Hakan Royal NP / [id number]
[~2016-05-18 13:05] MED LIST changes: +ATV.5 PO; +DEX4 PO; +LYRICA75 PO; +MIRALAX POWDER1 PKT PO; +OXYCON40 PO; +XELODA PO
[2016-05-18 13:12] LABS: BASOPHILS 0 %; EOSINOPHILS 0.2 %; EOSINOPHILS ABSOLUTE 0.01 10/3/uL (0.0-0.53); ER CBC TAT 0 Hrs 14 Mins; HEMOGLOBIN 7.1 g/dL (12.0-16.0); IMMATURE GRANULOCYTES 2.9 %; LYMPHOCYTES 7.2 %; LYMPHOCYTES ABSOLUTE 0.37 10/3/uL (0.67-4.30); MEAN CORPUSCULAR HEMOGLOB 31.8 pg (26.0-34.0); MONOCYTES ABSOLUTE 0.51 10/3/uL (0.21-1.20); NEUTROPHILS 79.7 %; NEUTROPHILS ABSOLUTE 4.07 10/3/uL (2.02-8.40); RBC DISTRIBUTION WIDTH 19.4 % (12.0-16.0); RED CELL COUNT 2.23 10/6/uL (4.0-5.6); WHITE BLOOD CELLS 5.1 10/3/uL (4.5-10.5)
[2016-05-18 13:13] LABS: HEMATOCRIT 20.7 % (36.0-48.0); IMMATURE GRANULOCYTES ABSOLUTE 0.15 10/3/uL (0.0-0.11); MANUAL DIFF NO %; MEAN CORPUS HGB CONC 34.3 g/dL (32.0-36.0); MEAN CORPUSCULAR VOLUME 92.8 fL (80-100); PLATELET COUNT 21 10/3/uL (150-400)
[2016-05-18 13:28] LABS: A/G RATIO 0.6 (0.7-1.9); ALBUMIN 2.4 G/DL (3.5-5.0); BUN (BLOOD UREA NITROGEN) 18 MG/DL (6-23); CALCIUM, SERUM 8.3 MG/DL (8.5-10.4); CO2 (CARBON DIOXIDE) 27 MMOL/L (24-34); CREATININE 0.69 MG/DL (0.55-1.02); GFR AFRICAN AMERICAN 118 ML/MIN (>=60); GFR NON AFRICAN AMERICAN 102 ML/MIN (>=60); GLOBULIN 4.2 G/DL (2.5-4.1); GLUCOSE, SERUM 107 MG/DL (60-99); SGOT(AST) 90 U/L (5-40); SGPT(ALT) 86 U/L (5-65); SODIUM, SERUM 132 MMOL/L (135-148); TOTAL BILIRUBIN 1.3 MG/DL (0-1.2); TOTAL PROTEIN 6.6 G/DL (6.0-8.5)
[2016-05-18 13:29] LABS: ALKALINE PHOSPHATASE 112 U/L (45-117); CHLORIDE, SERUM 89 MMOL/L (96-112); POTASSIUM, SERUM 2.5 MMOL/L (3.5-5.3)
[2016-05-18 13:38] LABS: ANISOCYTOSIS 1+ (5-10/OIF) (0-5/OIF); BAND NEUTROPHILS 7 %; ER DIFF TAT 0 Hrs 40 Mins; LYMPHOCYTES 5 %; LYMPHOCYTES ABSOLUTE (CALC) 0.26 10/3/uL (0.67-4.30); MONOCYTES 6 %; MONOCYTES ABSOLUTE (CALC) 0.31 10/3/uL (0.21-1.20); NEUTROPHILS ABSOLUTE (CALC) 4.54 10/3/uL (2.02-8.40); POLYCHROMASIA 1+ (2-5/OIF) (0-1/OIF); SEGMENTED NEUTROPHIL (0) 82 %; TOTAL NUCLEATED CELLS 100
[2016-05-19 05:09] LABS: HEMATOCRIT 22.6 % (36.0-48.0); HEMOGLOBIN 7.7 g/dL (12.0-16.0); MEAN CORPUS HGB CONC 34.1 g/dL (32.0-36.0); MEAN CORPUSCULAR HEMOGLOB 30.4 pg (26.0-34.0); RED CELL COUNT 2.53 10/6/uL (4.0-5.6); WHITE BLOOD CELLS 4.6 10/3/uL (4.5-10.5)
[2016-05-19 05:21] LABS: MANUAL DIFF YES %; MEAN CORPUSCULAR VOLUME 89.3 fL (80-100); PLATELET COUNT 19 10/3/uL (150-400)
[2016-05-19 05:28] LABS: BUN (BLOOD UREA NITROGEN) 18 MG/DL (6-23); CALCIUM, SERUM 7.6 MG/DL (8.5-10.4); CHLORIDE, SERUM 97 MMOL/L (96-112); CO2 (CARBON DIOXIDE) 23 MMOL/L (24-34); CREATININE 0.58 MG/DL (0.55-1.02); GFR AFRICAN AMERICAN 125 ML/MIN (>=60); GFR NON AFRICAN AMERICAN 107 ML/MIN (>=60); GLUCOSE, SERUM 115 MG/DL (60-99); SODIUM, SERUM 133 MMOL/L (135-148)
[2016-05-19 05:32] LABS: PHOSPHORUS, SERUM 1.7 MG/DL (2.5-4.5); POTASSIUM, SERUM 3.5 MMOL/L (3.5-5.3)
[2016-05-19 05:58] LABS: BAND NEUTROPHILS 8 %; EOSINOPHILS 1 %; EOSINOPHILS ABSOLUTE (CALC) 0.05 10/3/uL (0.0-0.53); LYMPHOCYTES 3 %; LYMPHOCYTES ABSOLUTE (CALC) 0.14 10/3/uL (0.67-4.30); MONOCYTES 5 %; MONOCYTES ABSOLUTE (CALC) 0.23 10/3/uL (0.21-1.20); NEUTROPHILS ABSOLUTE (CALC) 4.19 10/3/uL (2.02-8.40); SEGMENTED NEUTROPHIL (0) 83 %; TOTAL NUCLEATED CELLS 100
[2016-05-19 05:59] LABS: ANISOCYTOSIS 1+ (5-10/OIF) (0-5/OIF)
[2016-05-19 09:00] LABS: HEMOGLOBIN 7.8 g/dL (12.0-16.0)
[2016-05-20 07:45] LABS: BUN (BLOOD UREA NITROGEN) 19 MG/DL (6-23); CALCIUM, SERUM 7.4 MG/DL (8.5-10.4); CHLORIDE, SERUM 100 MMOL/L (96-112); CO2 (CARBON DIOXIDE) 21 MMOL/L (24-34); CREATININE 0.57 MG/DL (0.55-1.02); GFR AFRICAN AMERICAN 125 ML/MIN (>=60); GFR NON AFRICAN AMERICAN 108 ML/MIN (>=60); GLUCOSE, SERUM 171 MG/DL (60-99); POTASSIUM, SERUM 4.7 MMOL/L (3.5-5.3); SODIUM, SERUM 134 MMOL/L (135-148)
[2016-05-20 07:49] LABS: HEMATOCRIT 23.3 % (36.0-48.0); HEMOGLOBIN 8.1 g/dL (12.0-16.0); MEAN CORPUS HGB CONC 34.8 g/dL (32.0-36.0); MEAN CORPUSCULAR HEMOGLOB 30.7 pg (26.0-34.0); MEAN CORPUSCULAR VOLUME 88.3 fL (80-100); MEAN PLATELET VOLUME 10.1 fL (9.2-13.0); NUCLEATED RED BLOOD CELLS 1.3 /100WBC (0-0); RBC DISTRIBUTION WIDTH 18.3 % (12.0-16.0); RED CELL COUNT 2.64 10/6/uL (4.0-5.6); WHITE BLOOD CELLS 4.2 10/3/uL (4.5-10.5)
[2016-05-20 07:53] LABS: MANUAL DIFF YES %; PLATELET COUNT 18 10/3/uL (150-400)
[2016-05-20 08:27] LABS: BAND NEUTROPHILS 4 %; IMMATURE GRANS ABSOLUTE (CALC) 0.04 10/3/uL (0.0-0.11); LYMPHOCYTES 6 %; LYMPHOCYTES ABSOLUTE (CALC) 0.25 10/3/uL (0.67-4.30); METAMYELOCYTES 1 %; MONOCYTES 10 %; MONOCYTES ABSOLUTE (CALC) 0.42 10/3/uL (0.21-1.20); NEUTROPHILS ABSOLUTE (CALC) 3.49 10/3/uL (2.02-8.40); SEGMENTED NEUTROPHIL (0) 79 %; TOTAL NUCLEATED CELLS 100
[2016-05-20 08:28] LABS: ANISOCYTOSIS 1+ (5-10/OIF) (0-5/OIF)
== END 2016-05-20 16:11 | disposition home or self-care (01) | DRG 641 ==
LOC: ER 13:05 → 4EA 14:39
PROVIDERS: Emergency Medicine; Internal Medicine; Nurse Practitioner Adult Health
DX: E87.6 Hypokalemia (principal); D69.6 Thrombocytopenia, unspecified; C50.919 Malignant neoplasm of unspecified site of unspecified female breast; D63.0 Anemia in neoplastic disease; Z23 Encounter for immunization
CPT/HCPCS: 36415; 71010; 80048; 80053; 81001; 83605; 83690; 83735; 84100; 85014; 85018; 85025; 86850; 86900; 86901; 86920; 87040; 90686; 99285; A9270-GY; G0008; J2405; J3480; P9016

== ENCOUNTER 2016-06-15 13:54 | Emergency (ER) | payer OTHER ==
[2016-06-15 14:27] LABS: BASOPHILS 0.4 %; BASOPHILS ABSOLUTE 0.01 10/3/uL (0.0-0.16); EOSINOPHILS 0.4 %; EOSINOPHILS ABSOLUTE 0.01 10/3/uL (0.0-0.53); HEMOGLOBIN 7.9 g/dL (12.0-16.0); IMMATURE GRANULOCYTES 8.3 %; IMMATURE GRANULOCYTES ABSOLUTE 0.19 10/3/uL (0.0-0.11); LYMPHOCYTES 25.4 %; LYMPHOCYTES ABSOLUTE 0.58 10/3/uL (0.67-4.30); MEAN CORPUS HGB CONC 34.3 g/dL (32.0-36.0); MEAN CORPUSCULAR HEMOGLOB 29.6 pg (26.0-34.0); MEAN CORPUSCULAR VOLUME 86.1 fL (80-100); MEAN PLATELET VOLUME 9.3 fL (9.2-13.0); MONOCYTES 17.5 %; NEUTROPHILS ABSOLUTE 1.09 10/3/uL (2.02-8.40); RBC DISTRIBUTION WIDTH 16.9 % (12.0-16.0); RED CELL COUNT 2.67 10/6/uL (4.0-5.6)
[2016-06-15 14:32] LABS: ER CBC TAT 0 Hrs 09 Mins; PLATELET COUNT 66 10/3/uL (150-400); WHITE BLOOD CELLS 2.3 10/3/uL (4.5-10.5)
[2016-06-15 14:34] LABS: MANUAL DIFF NO %
[2016-06-15 14:36] LABS: INTERNATIONAL NORMAL RATI 1.1 UNITS (-); PARTIAL THROMBO TIME 28.3 SEC (22.5-37.2)
[2016-06-15 14:43] LABS: A/G RATIO 0.6 (0.7-1.9); ALBUMIN 2.6 G/DL (3.5-5.0); CHLORIDE, SERUM 103 MMOL/L (96-112); CO2 (CARBON DIOXIDE) 23 MMOL/L (24-34); CREATININE 0.65 MG/DL (0.55-1.02); GFR AFRICAN AMERICAN 120 ML/MIN (>=60); GFR NON AFRICAN AMERICAN 104 ML/MIN (>=60); GLOBULIN 4.2 G/DL (2.5-4.1); SGOT(AST) 116 U/L (5-40); SGPT(ALT) 59 U/L (5-65); SODIUM, SERUM 138 MMOL/L (135-148); TOTAL PROTEIN 6.8 G/DL (6.0-8.5)
[2016-06-15 14:44] LABS: ALKALINE PHOSPHATASE 271 U/L (45-117); BUN (BLOOD UREA NITROGEN) 6 MG/DL (6-23); CALCIUM, SERUM 8.7 MG/DL (8.5-10.4); GLUCOSE, SERUM 94 MG/DL (60-99); POTASSIUM, SERUM 3.7 MMOL/L (3.5-5.3); TOTAL BILIRUBIN 0.7 MG/DL (0-1.2)
[2016-06-15 15:06] LABS: BAND NEUTROPHILS 13 %; BASOPHILS 1 %; BASOPHILS ABSOLUTE (CALC) 0.02 10/3/uL (0.0-0.16); EOSINOPHILS 1 %; EOSINOPHILS ABSOLUTE (CALC) 0.02 10/3/uL (0.0-0.53); ER DIFF TAT 0 Hrs 43 Mins; IMMATURE GRANS ABSOLUTE (CALC) 0.12 10/3/uL (0.0-0.11); LYMPHOCYTES 15 %; LYMPHOCYTES ABSOLUTE (CALC) 0.35 10/3/uL (0.67-4.30); METAMYELOCYTES 3 %; MONOCYTES 19 %; MONOCYTES ABSOLUTE (CALC) 0.44 10/3/uL (0.21-1.20); MYELOCYTES 2 %; NEUTROPHILS ABSOLUTE (CALC) 1.36 10/3/uL (2.02-8.40); PLATELET ESTIMATE DEC (ADEQUATE); SEGMENTED NEUTROPHIL (0) 46 %; TOTAL NUCLEATED CELLS 100
[2016-06-15 15:07] LABS: POLYCHROMASIA 1+ (2-5/OIF) (0-1/OIF)
== END 2016-06-15 20:04 | disposition home or self-care (01) ==
LOC: ER 13:54
PROVIDERS: Emergency Medicine
DX: D64.9 Anemia, unspecified (principal); C50.919 Malignant neoplasm of unspecified site of unspecified female breast; Z79.899 Other long term (current) drug therapy
CPT/HCPCS: 36415; 71020; 80053; 85025; 85610; 85730; 86850; 86900; 86901; 93005; 99284